=== PATIENT | female | born 1990 | race Caucasian/White ===

== ENCOUNTER 2016-12-17 17:53 | Emergency (ER) | payer MEDICAID ==
[~2016-12-17] VITALS: Ht 165.1 cm; Wt 68.0 kg
[~2016-12-17 17:53] MED LIST: ADDE30TA PO; LO LTAB PO; MACR100C PO; ZOFR4TAB3 SL
[2016-12-17 17:55] VITALS: BP 124/79; PULSE 64; RESP 16; TEMP 98.8; O2SAT 100
[2016-12-17] MEDS ORDERED: ZOFR4TAB3 SL (18:11)
[2016-12-17] MEDS ORDERED: IBUP800T23 PO (18:11)
[2016-12-17] MEDS ORDERED: MAGICPED SWISH-SPIT (18:11)
--- NOTE | 2016-12-17 18:12 | PD ---
HPI Chief Complaint: Oral / Dental Pain or Problem Time Seen by Provider: 18:10 Travel History International Travel<30 days: No Contact w/Intl Traveler<30days: No Traveled to known affect area: No History of Present Illness HPI 26-year-old female presents emergency Department with complaint of right lower tooth pain 1 week. Has been on amoxicillin for the last week and has a dentist appointment tomorrow. Pain is excruciating. She denies fever. Denies facial erythema, edema. Reports vomiting. Says her tooth is cracked and has a hole in it. Has been taking Tylenol threes and ibuprofen with no relief of pain. Patient reports taking 12 200 mg ibuprofens throughout the day today. Has tried an ice pack to the side of her face and says it makes it worse. Allergies to Percocet. Has no other medical complaints. No other modifying factors or associated signs and symptoms. PFSH Past Medical History Anemia: Yes Asthma: No Heart Rhythm Problems: No Cancer: No Cardiovascular Problems: No High Cholesterol: No Chest Pain: No Congestive Heart Failure: No COPD: No Cerebrovascular Accident: No Diminished Hearing: No Endocrine: No Genitourinary: Yes (PROTEINURIA ON 01/2016) Headaches: Yes Immune Disorder: No Kidney Stones: No Musculoskeletal: No Psychiatric: No Reproductive: No Respiratory: No Immunizations Current: Yes Migraines: No Renal Failure: No Seizures: Yes (AT AGE 3) Sleep Apnea: No ?: Not LMP: 12/01/16 : 2 Para: 2 Miscarriage: 0 : 0 Past Surgical History Other Surgery: No Social History Alcohol Use: Yes (OCCASSIONALLY) Tobacco Use: No Substance Use: No Allergies-Medications (Allergen,Severity, Reaction): Coded Allergies: Percocet (Verified Allergy, Unknown, VOMITING AND HIVES, 02/08/16) Reported Meds & Prescriptions Reported Meds & Active Scripts Active Ibuprofen 800 Mg Tab 800 Mg PO Q6HR PRN Magic Mouthwash Pediatric/Adult Liq (Lidocaine/Diphenhydr/Alum/Mg/Simeth) 60 Ml Susp 5 Ml SWISH-SPIT Q3HR PRN Each 5mL contains: Diphenydramine 4.5mg, Viscous Lidocaine 2% 10mg, Maalox Advanced Regular Strength 2.7ml Zofran Odt (Ondansetron Odt) 4 Mg Tab 4 Mg SL Q8HR PRN Zofran ODT (Ondansetron HCl) 4 Mg Tab 4 Mg SL Q6H PRN Macrobid (Nitrofurantoin Macrocrystals) 100 Mg Cap 100 Mg PO BID Lo Loestrin Fe (Norethindrone Acetate-Ethinyl) Tab 1 Tab PO DAILY Reported Adderall 30 mg (Amphetamine/Dextroamphetamine) 30 Mg Tab 1 Tab PO BID Review of Systems Except as stated in HPI: all other systems reviewed are Neg Physical Exam Narrative GENERAL: Well-nourished, well-developed female patient, in no acute distress; afebrile, nontoxic-appearing SKIN: Warm and dry. HEAD: Atraumatic. Normocephalic. No facial edema, erythema, tenderness on palpation. No lymphadenopathy. EYES: Pupils equal and round. No scleral icterus. No injection or drainage. ENT: Mucosa pink and moist. Airway patent. MOUTH: Mucous membranes moist, no lesions, tongue and gums appear normal. Right lower wisdom tooth with large dental cavity and decay; the tenderness on palpation; surrounding gingiva is mildly edematous and without erythema, drainage medical no obvious abscess noted. NECK: Trachea midline. No lymphadenopathy. CARDIOVASCULAR: Regular rate. RESPIRATORY: No accessory muscle use. GASTROINTESTINAL: Flat. MUSCULOSKELETAL: No obvious deformities. No clubbing. No cyanosis. No edema. NEUROLOGICAL: Awake and alert. Oriented 3. No obvious cranial nerve deficits. Motor grossly within normal limits. Normal speech. PSYCHIATRIC: Appropriate mood and affect; insight and judgment normal. Data Data Last Documented VS Vital Signs Date Time Temp Pulse Resp B/P Pulse Ox O2 Delivery O2 Flow Rate FiO2 12/17/16 17:55 98.8 64 16 124/79 100 Room Air Orders Ketorolac Inj (Toradol Inj) (12/17/16 18:15) MDM Medical Decision Making Medical Screen Exam Complete: Yes Emergency Medical Condition: Yes Medical Record Reviewed: Yes Differential Diagnosis Dentalgia, dental abscess, root exposure, dental trauma, infected dental cavity Narrative Course 26-year-old female with dentalgia to the right lower wisdom tooth. She has a follow-up appointment with the dentist tomorrow. She's been taking amoxicillin for 1 week. Denies fever. Reports vomiting. Patient has no facial edema or erythema. She is afebrile and nontoxic-appearing. Instructed patient to continue amoxicillin as prescribed. I did offer to change the antibiotic and she declined at this time. Patient has Tylenol 3's at home for pain. Toradol administered in the ER. Magic mouthwash, ibuprofen, Zofran prescribed for home. Patient verbalizes understanding and agreement with treatment plan. Patient is medically cleared and stable for discharge. Discussed reasons to return to the emergency department. Instructed patient to follow up with primary care provider. Patient agrees with treatment plan. The patients vital signs are stable and the patient is stable for outpatient follow-up and treatment. Patient discharged home, stable and in no acute distress. Diagnosis Primary Impression: Dentalgia Referrals: Dentist Primary Care Physician Patient Instructions: Dental Abscess (ED), Dental Caries (ED), General Instructions, Toothache (ED) Departure Forms: Tests/Procedures, Work Release Enter return to work date: December 19, 2016 Additional Instructions: Complete full course of antibiotics Ibuprofen as directed and as needed to reduce pain and inflammation Use Magic mouthwash rinse as directed and as needed to decrease pain Warm compresses to the affected area Follow-up with dentist Follow-up with primary care provider Return to emergency department immediately with worsening of symptoms Med/Other Pt SpecificInfo: Prescription(s) given Scripts Ibuprofen 800 Mg Qid293 Mg PO Q6HR PRN (PAIN) #30 TAB Ref 0 Prov:Jojo Macario 12/17/16 Kcczktznlidtesr-Npesqwmhb-Ste-Alum-Simeth Liq (Magic Mouthwash Pediatric/Adult Liq)60 Ml Susp5 Ml SWISH-SPIT Q3HR PRN (PAIN SCALE 1 TO 10) #60 ML Ref 0 Each 5mL contains: Diphenydramine 4.5mg, Viscous Lidocaine 2% 10mg, Maalox Advanced Regular Strength 2.7ml Prov:Jojo Macario 12/17/16 Ondansetron Odt (Zofran Odt)4 Mg Tab4 Mg SL Q8HR PRN (Nausea/Vomiting) #10 TAB Ref 0 Prov:Jojo Macario 12/17/16 Disposition: 01 DISCHARGE HOME Condition: Stable Jojo Macario December 17, 2016 18:12 Jojo Macario December 17, 2016 18:12
[2016-12-17] MEDS ORDERED: KETOROLAC TROMETHAMINE 60 MG/2 ML (IM) VIAL IM ONE (18:15)
== END 2016-12-17 18:59 | disposition home or self-care (01) ==
LOC: NEPK 17:53
DX: K08.89 Other specified disorders of teeth and supporting structures (principal); R11.10 Vomiting, unspecified; Z86.2 Personal history of diseases of the blood and blood-forming organs and certain disorders involving the immune mechanism; Z87.448 Personal history of other diseases of urinary system
CPT/HCPCS: 99282

== ENCOUNTER 2017-08-10 16:55 | Emergency (ER) | payer BC, MEDICAID ==
[~2017-08-10 16:55] MED LIST changes: +IBUP1TAB7 PO; +MAGICPED SWISH-SPIT
[2017-08-10 16:56] VITALS: BP 116/67; PULSE 65; RESP 14; TEMP 98.6; O2SAT 100
[2017-08-10 19:13] LABS: BILIRUBIN, URINE NEG (NEG); BLOOD, URINE MOD (NEG); GLUCOSE,URINE NEG (NEG); KETONE, URINE NEG (NEG); NITRITE,URINE NEG (NEG); PH, URINE 7.5 (5.0-8.5); SQUAMOUS EPITHELIAL CELL URINE <1 /hpf (0-5); URINE COLOR LIGHT-YELLOW (YELLW/STRAW); URINE LEUKOCYTE ESTERASE LARGE (NEG)
[2017-08-10 19:15] LABS: AUTOMATED NEUTROPHIL # 4.1 TH/MM3 (1.8-7.7); BASOPHIL # 0.1 TH/MM3 (0-0.2); BASOPHIL % 0.8 % (0.0-2.0); EOSINOPHIL # 0.1 TH/MM3 (0-0.4); EOSINOPHIL % 1.1 % (0.0-4.0); HEMATOCRIT 31.4 % (35.0-46.0); HEMOGLOBIN 9.9 GM/DL (11.6-15.3); LYMPH % 25.4 % (9.0-44.0); LYMPHOCYTE # 1.5 TH/MM3 (1.0-4.8); MEAN CELL VOLUME 68.2 FL (80.0-100.0); MEAN CORPUSCULAR HEMOGLOBIN 21.4 PG (27.0-34.0); MEAN CORPUSCULAR HGB CONC 31.4 % (32.0-36.0); MEAN PLATELET VOLUME 9.6 FL (7.0-11.0); MONO % 5.4 % (0.0-8.0); MONOCYTE # 0.3 TH/MM3 (0-0.9); NEUT % 67.3 % (16.0-70.0); PLATELET COUNT 245 TH/MM3 (150-450); RED BLOOD COUNT 4.61 MIL/MM3 (4.00-5.30); RED CELL DISTRIBUTION WIDTH 17.5 % (11.6-17.2)
[2017-08-10 19:57] LABS: ALBUMIN 3.8 GM/DL (3.4-5.0); AST (GOT) 20 U/L (15-37); BICARBONATE 27.5 MEQ/L (21.0-32.0); BLOOD UREA NITROGEN 5 MG/DL (7-18); CALCIUM 9.1 MG/DL (8.5-10.1); CHLORIDE 107 MEQ/L (98-107); CREATININE 0.73 MG/DL (0.50-1.00); GLOMERULAR FILTRATION RATE 96 ML/MIN (>89); GLUCOSE,RANDOM 93 MG/DL (74-106); LIPASE 143 U/L (73-393); SODIUM (NA) 141 MEQ/L (136-145)
[2017-08-10 19:59] LABS: ALT (GPT) 18 U/L (10-53)
[2017-08-10 20:00] LABS: ALKALINE PHOSPHATASE 63 U/L (45-117); TOTAL BILIRUBIN ADULT 0.2 MG/DL (0.2-1.0); TOTAL PROTEIN 7.9 GM/DL (6.4-8.2)
--- NOTE | 2017-08-10 22:41 | PD ---
HPI Chief Complaint: Abdominal Pain Time Seen by Provider: 21:55 Travel History International Travel<30 days: No Contact w/Intl Traveler<30days: No Traveled to known affect area: No History of Present Illness HPI 27-year-old female here for evaluation of left lower quadrant abdominal pain, dysuria, vaginal discharge. Symptoms have been going on for last 2 days, and the patient describes the pain as sharp, intermittent, worse with urinating, moderate. The patient reports similar symptoms in the past and believes she may have a UTI. She denies history of abdominal surgeries. She is currently on her menstrual period. She has had chlamydia in the past, however she is sexually active with one partner whom she is to an believes has been in a monogamous relationship for the last 2 years. No fevers or chills. No vomiting or diarrhea. PFSH Past Medical History Anemia: Yes Asthma: No Heart Rhythm Problems: No Cancer: No Cardiovascular Problems: No High Cholesterol: No Chest Pain: No Congestive Heart Failure: No COPD: No Cerebrovascular Accident: No Diminished Hearing: No Endocrine: No Genitourinary: Yes (PROTEINURIA ON 01/2016) Headaches: Yes Immune Disorder: No Kidney Stones: No Musculoskeletal: No Psychiatric: No Reproductive: No Respiratory: No Immunizations Current: Yes Migraines: No Renal Failure: No Seizures: Yes (AT AGE 3) Sleep Apnea: No ?: Not LMP: 08/09/17 : 2 Para: 2 Miscarriage: 0 : 0 Past Surgical History Other Surgery: No Social History Alcohol Use: Yes (OCCASSIONALLY) Tobacco Use: No Substance Use: No Allergies-Medications (Allergen,Severity, Reaction): Coded Allergies: acetaminophen (Unverified Allergy, Unknown, VOMITING AND HIVES, 03/17/17) oxycodone (Unverified Allergy, Unknown, VOMITING AND HIVES, 03/17/17) Reported Meds & Prescriptions Reported Meds & Active Scripts Active Ibuprofen 800 Mg Tab 800 Mg PO Q6HR PRN Magic Mouthwash Pediatric/Adult Liq (Lidocaine/Diphenhydr/Alum/Mg/Simeth) 60 Ml Susp 5 Ml SWISH-SPIT Q3HR PRN Each 5mL contains: Diphenydramine 4.5mg, Viscous Lidocaine 2% 10mg, Maalox Advanced Regular Strength 2.7ml Zofran Odt (Ondansetron Odt) 4 Mg Tab 4 Mg SL Q8HR PRN Zofran ODT (Ondansetron HCl) 4 Mg Tab 4 Mg SL Q6H PRN Macrobid (Nitrofurantoin Macrocrystals) 100 Mg Cap 100 Mg PO BID Lo Loestrin Fe (Norethindrone Acetate-Ethinyl) Tab 1 Tab PO DAILY Reported Adderall 30 mg (Amphetamine/Dextroamphetamine) 30 Mg Tab 1 Tab PO BID Review of Systems Except as stated in HPI: all other systems reviewed are Neg Physical Exam Narrative GENERAL: Well-developed, well-nourished, comfortable, no apparent distress. SKIN: Focused skin assessment warm/dry. No rash. HEAD: Atraumatic. Normocephalic. EYES: Pupils equal and round. No scleral icterus. No injection or drainage. ENT: Mucous membranes pink and moist. CARDIOVASCULAR: Regular rate and rhythm. No murmur appreciated. RESPIRATORY: No accessory muscle use. Clear to auscultation. Breath sounds equal bilaterally. GASTROINTESTINAL: Abdomen soft, nondistended. Moderate left lower quadrant tenderness without peritoneal signs. Mild suprapubic and right lower quadrant tenderness without peritoneal signs. The rest of abdomen is soft and nontender. Normal bowel sounds. CHIEF MEDICAL PHYSICIST: Exam performed in the presence of a female nurse. Normal external genitalia. Moderate amount of clear/grayish vaginal discharge. Cervix appears normal. No CMT. No adnexal masses or tenderness. MUSCULOSKELETAL: No obvious deformities. No clubbing. No cyanosis. No edema. NEUROLOGICAL: Awake and alert. No obvious cranial nerve deficits. Motor grossly within normal limits. Normal speech. PSYCHIATRIC: Appropriate mood and affect; insight and judgment normal. Data Data Last Documented VS Vital Signs Date Time Temp Pulse Resp B/P (MAP) Pulse Ox O2 Delivery O2 Flow Rate FiO2 08/10/17 16:56 98.6 65 14 116/67 (83) 100 Orders Orders Complete Blood Count With Diff (08/10/17 17:24) Comprehensive Metabolic Panel (08/10/17 17:24) Urinalysis - C+S If Indicated (08/10/17 17:24) Lipase (08/10/17 17:24) Ed Urine Pregnancytest Poc (08/10/17 21:55) Gc And Chlamydia Pcr (08/10/17 21:59) Wet Prep Profile (08/10/17 21:59) Metronidazole (Flagyl) (08/10/17 23:15) Azithromycin Powd Pack (Zithromax Powd P (08/10/17 23:15) Ceftriaxone Inj (Rocephin Inj) (08/10/17 23:15) Lidocaine 1% Inj (50 Ml) (Xylocaine 1% I (08/10/17 23:15) Ibuprofen (Motrin) (08/10/17 23:15) Labs Laboratory Tests Test 08/10/17 18:40 08/10/17 22:18 White Blood Count 6.0 TH/MM3 Red Blood Count 4.61 MIL/MM3 Hemoglobin 9.9 GM/DL Hematocrit 31.4 % Mean Corpuscular Volume 68.2 FL Mean Corpuscular Hemoglobin 21.4 PG Mean Corpuscular Hemoglobin Concent 31.4 % Red Cell Distribution Width 17.5 % Platelet Count 245 TH/MM3 Mean Platelet Volume 9.6 FL Neutrophils (%) (Auto) 67.3 % Lymphocytes (%) (Auto) 25.4 % Monocytes (%) (Auto) 5.4 % Eosinophils (%) (Auto) 1.1 % Basophils (%) (Auto) 0.8 % Neutrophils # (Auto) 4.1 TH/MM3 Lymphocytes # (Auto) 1.5 TH/MM3 Monocytes # (Auto) 0.3 TH/MM3 Eosinophils # (Auto) 0.1 TH/MM3 Basophils # (Auto) 0.1 TH/MM3 CBC Comment DIFF FINAL Differential Comment Urine Color LIGHT-YELLOW Urine Turbidity CLEAR Urine pH 7.5 Urine Specific [place] 1.003 Urine Protein NEG mg/dL Urine Glucose (UA) NEG mg/dL Urine Ketones NEG mg/dL Urine Occult Blood MOD Urine Nitrite NEG Urine Bilirubin NEG Urine Urobilinogen LESS THAN 2.0 MG/DL Urine Leukocyte Esterase LARGE Urine RBC LESS THAN 1 /hpf Urine WBC 7 /hpf Urine Squamous Epithelial Cells <1 /hpf Microscopic Urinalysis Comment CULT NOT INDICATED Blood Urea Nitrogen 5 MG/DL Creatinine 0.73 MG/DL Random Glucose 93 MG/DL Total Protein 7.9 GM/DL Albumin 3.8 GM/DL Calcium Level 9.1 MG/DL Alkaline Phosphatase 63 U/L Aspartate Amino Transf (AST/SGOT) 20 U/L Alanine Aminotransferase (ALT/SGPT) 18 U/L Total Bilirubin 0.2 MG/DL Sodium Level 141 MEQ/L Potassium Level 3.7 MEQ/L Chloride Level 107 MEQ/L Carbon Dioxide Level 27.5 MEQ/L Anion Gap 7 MEQ/L Estimat Glomerular Filtration Rate 96 ML/MIN Lipase 143 U/L Clue Cells (Wet Prep) NONE SEEN Vaginal Trichomonas (Wet Prep) PRESENT Vaginal Yeast (Wet Prep) NONE SEEN MDM Medical Decision Making Medical Screen Exam Complete: Yes Emergency Medical Condition: Yes Differential Diagnosis UTI, cystitis, ovarian cyst, ovarian torsion, PID, TOA, BV, Trichomonas, appendicitis, colitis, Narrative Course Vital signs show heart rate 65, blood pressure 116/67, pulse ox 100% on room air , tympanic temp of 98.6F. CBC: WBC 6, hemoglobin 9.9, hematocrit 31.4, platelets 245. CMP is unremarkable. Lipase is 143. UA: Moderate occult blood, large leukocyte esterase, 7 WBCs, negative nitrites. Wet prep: Positive for Trichomonas. Negative for yeast, negative for clue cells. Patient reports history of anemia and previous labs in our system show hemoglobin is low 7.4. She is currently on iron supplements daily. Patient was made aware of wet prep findings. She will be given 2 g of Flagyl and will be empirically treated for gonorrhea and chlamydia. She was advised to have her sexual partner tested and treated as well. I believe that her symptoms are from the Trichomonas vaginalis. There are no peritoneal signs on exam, and I do not believe that there is an acute intra-abdominal/surgical process. Patient was advised to follow-up with her SURGICAL ENDOSCOPIST physician this week. She was informed on when to return to the emergency department. She verbalizes understanding and agreement with plan. Diagnosis Primary Impression: Trichomonas vaginalis (TV) infection Referrals: Field Case Manager 3 days Additional Instructions: Follow-up with your dredge engineer this week. Return to the emergency department for worsening symptoms or any other concerns. Disposition: 01 DISCHARGE HOME Condition: Stable Herson Christine MD Aug 10, 2017 22:41
[2017-08-10] MEDS ORDERED: LIDOCAINE HCL 1% 50 ML VIAL IM ONE (23:15)
[2017-08-10] MEDS ORDERED: AZITHROMYCIN PWD FOR SUSP 1 GM PACKET PO ONE (23:15)
[2017-08-10] MEDS ORDERED: metroNIDAZOLE 500 MG TAB PO ONE (23:15)
[2017-08-10] MEDS ORDERED: IBUPROFEN 600 MG TAB PO ONE (23:15)
[2017-08-10] MEDS ORDERED: cefTRIAXone 250 MG VIAL IM ONE (23:15)
[2017-08-10] MEDS ORDERED: LIDOCAINE HCL 1% PF 5 ML AMPULE OTHER ONE (23:30)
--- NOTE | 2017-08-11 16:23 | EKG ---
Date Performed: 08/11/2017 Time Performed: 01:02:19 PTAGE: 27 years EKG: SINUS BRADYCARDIA POSSIBLE RIGHT VENTRICULAR CONDUCTION DELAY BORDERLINE ECG PREVIOUS TRACING : 08/20/2013 17.20 Voltage has increased since prior tracing. DOCTOR: Moses Camarena Interpretating Date/Time 08/11/2017 16:22:03
== END 2017-08-10 23:51 | disposition home or self-care (01) ==
LOC: NEPD 16:55
DX: A59.01 Trichomonal vulvovaginitis (principal); R00.1 Bradycardia, unspecified; D64.9 Anemia, unspecified; R56.9 Unspecified convulsions; Z79.899 Other long term (current) drug therapy; Z88.6 Allergy status to analgesic agent; Z88.5 Allergy status to narcotic agent
CPT/HCPCS: 80053; 81001; 83690; 84703; 85025; 87210; 87491; 87591; 96372; 99284; J0696; 93005

== ENCOUNTER 2017-10-31 05:39 | Emergency (ER) | payer MEDICAID, OTHER ==
[~2017-10-31] VITALS: Ht 165.1 cm; Wt 66.0 kg
[2017-10-31 05:41] VITALS: BP 121/79; PULSE 97; RESP 16; TEMP 99.1; O2SAT 100
--- NOTE | 2017-10-31 06:34 | PD ---
HPI Chief Complaint: Cold / Flu Symptoms Time Seen by Provider: 05:56 Travel History International Travel<30 days: No Contact w/Intl Traveler<30days: No Traveled to known affect area: No History of Present Illness HPI 27 years old female complains of low abdominal pain, low back pain, nausea vomiting, lightheadedness, vaginal spotting and fever. Patient states that she started having lower abdominal pain low back pain and vaginal spotting 4 days ago. Patient started running fever with intermittent nausea vomiting and lightheadedness for the past 2 days. Patient states that her last menstruation period was 30 days ago. Patient denies any dysuria or frequency. Patient is 4 para 2 AB 1. Patient's blood type O+. PFSH Past Medical History Anemia: Yes Asthma: No Heart Rhythm Problems: No Cancer: No Cardiovascular Problems: No High Cholesterol: No Chest Pain: No Congestive Heart Failure: No COPD: No Cerebrovascular Accident: No Diminished Hearing: No Endocrine: No Genitourinary: Yes (PROTEINURIA ON 01/2016) Headaches: Yes Immune Disorder: No Kidney Stones: No Musculoskeletal: No Psychiatric: No Reproductive: No Respiratory: No Immunizations Current: Yes Migraines: No Renal Failure: No Seizures: Yes (AT AGE 3) Sleep Apnea: No Tetanus Vaccination: < 5 Years Influenza Vaccination: No ?: Unknown LMP: 10/01/17 : 2 Para: 2 Miscarriage: 0 : 0 Past Surgical History Surgical History: No Previous Surgery Other Surgery: No Social History Alcohol Use: Yes (OCCASSIONALLY) Tobacco Use: No Substance Use: No Allergies-Medications (Allergen,Severity, Reaction): Coded Allergies: acetaminophen (Unverified Allergy, Unknown, VOMITING AND HIVES, 03/17/17) oxycodone (Unverified Allergy, Unknown, VOMITING AND HIVES, 03/17/17) Reported Meds & Prescriptions Reported Meds & Active Scripts Active Ibuprofen 800 Mg Tab 800 Mg PO Q6HR PRN Magic Mouthwash Pediatric/Adult Liq (Lidocaine/Diphenhydr/Alum/Mg/Simeth) 60 Ml Susp 5 Ml SWISH-SPIT Q3HR PRN Each 5mL contains: Diphenydramine 4.5mg, Viscous Lidocaine 2% 10mg, Maalox Advanced Regular Strength 2.7ml Zofran Odt (Ondansetron Odt) 4 Mg Tab 4 Mg SL Q8HR PRN Zofran ODT (Ondansetron HCl) 4 Mg Tab 4 Mg SL Q6H PRN Macrobid (Nitrofurantoin Macrocrystals) 100 Mg Cap 100 Mg PO BID Lo Loestrin Fe (Norethindrone Acetate-Ethinyl) Tab 1 Tab PO DAILY Reported Adderall 30 mg (Amphetamine/Dextroamphetamine) 30 Mg Tab 1 Tab PO BID Review of Systems General / Constitutional: No: Fever Eyes: No: Visual changes HENT: No: Headaches Cardiovascular: No: Chest Pain or Discomfort Respiratory: No: Shortness of Breath Gastrointestinal: Positive: Nausea, Vomiting, Abdominal Pain Genitourinary: Positive: Vaginal Bleeding, No: Dysuria Musculoskeletal: No: Pain Skin: No Rash Neurologic: No: Weakness Psychiatric: No: Depression Endocrine: No: Polydipsia Hematologic/Lymphatic: No: Easy Bruising Physical Exam Narrative GENERAL: Well-nourished, well-developed patient. SKIN: Focused skin assessment warm/dry. HEAD: Normocephalic. EYES: No scleral icterus. No injection or drainage. NECK: Supple, trachea midline. No JVD or lymphadenopathy. CARDIOVASCULAR: Regular rate and rhythm without murmurs, gallops, or rubs. RESPIRATORY: Breath sounds equal bilaterally. No accessory muscle use. GASTROINTESTINAL: Abdomen soft, non-tender, nondistended. MUSCULOSKELETAL: No cyanosis, or edema. BACK: Nontender without obvious deformity. No CVA tenderness. ARTIFICIAL TEETH INSPECTOR exam: No obvious blood in the vaginal vault. The cervix long thick and closed. Uterus not enlarged with mild tenderness on palpation. Moderate tenderness on palpation right adnexal area. No adnexal mass. Data Data Last Documented VS Vital Signs Date Time Temp Pulse Resp B/P (MAP) Pulse Ox O2 Delivery O2 Flow Rate FiO2 10/31/17 05:41 99.1 97 16 121/79 (93) 100 Orders Orders Beta Hcg (Quant/Titer) (10/31/17 06:27) Complete Blood Count With Diff (10/31/17 06:27) Basic Metabolic Panel (Bmp) (10/31/17 06:27) Us Pelvis (Ques Pr/Ect)W Trans (10/31/17 ) Urinalysis - C+S If Indicated (10/31/17 06:27) Iv Access Insert/Monitor (10/31/17 06:27) Ed Urine Pregnancytest Poc (10/31/17 06:27) [facility] Medical Decision Making Medical Screen Exam Complete: Yes Emergency Medical Condition: Yes Interpretation(s) Urine test positive. Differential Diagnosis Differential diagnosis including viral syndrome, threatened AB, incomplete AB, complete AB, ectopic . Narrative Course 27 years old female with nausea vomiting, fever, abdominal pain, low back pain, vaginal spotting. Renato Workman MD Oct 31, 2017 06:34
[2017-10-31 06:56] LABS: AUTOMATED NEUTROPHIL # 4.1 TH/MM3 (1.8-7.7); BASOPHIL % 0.7 % (0.0-2.0); EOSINOPHIL % 0.8 % (0.0-4.0); HEMATOCRIT 34.3 % (35.0-46.0); LYMPH % 17.4 % (9.0-44.0); MEAN CORPUSCULAR HEMOGLOBIN 21.7 PG (27.0-34.0); MEAN PLATELET VOLUME 9.1 FL (7.0-11.0); MONO % 9.8 % (0.0-8.0); MONOCYTE # 0.6 TH/MM3 (0-0.9); NEUT % 71.3 % (16.0-70.0); PLATELET COUNT 267 TH/MM3 (150-450); RED BLOOD COUNT 5.04 MIL/MM3 (4.00-5.30); RED CELL DISTRIBUTION WIDTH 18.1 % (11.6-17.2); WHITE BLOOD COUNT 5.7 TH/MM3 (4.0-11.0)
[2017-10-31 07:12] LABS: BACTERIA, URINE OCC /hpf; BILIRUBIN, URINE NEG (NEG); BLOOD, URINE NEG (NEG); GLUCOSE,URINE NEG (NEG); HYALINE CAST, URINE 6 /lpf (RARE); KETONE, URINE NEG (NEG); MUCUS URINE FEW /lpf (OCC); NITRITE,URINE NEG (NEG); SQUAMOUS EPITHELIAL CELL URINE 1 /hpf (0-5); URINE COLOR YELLOW (YELLW/STRAW); URINE LEUKOCYTE ESTERASE NEG (NEG)
[2017-10-31 07:28] LABS: BICARBONATE 27.4 MEQ/L (21.0-32.0); CALCIUM 9.2 MG/DL (8.5-10.1); CREATININE 0.83 MG/DL (0.50-1.00)
[2017-10-31 07:36] VITALS: BP 116/57; PULSE 100; RESP 18; O2SAT 98
--- NOTE | 2017-10-31 09:03 | RADRPT ---
EXAM DATE/TIME: 10/31/2017 07:48 [place] COMPARISON: No previous studies available for comparison. INDICATIONS : Pelvic pain and spotting with . LAB(S): Beta-hC MEDICAL HISTORY : . Seizures. SURGICAL HISTORY : None. ENCOUNTER: Initial ACUITY: 1 day PAIN SCORE: 3/10 LOCATION: Bilateral pelvis MEASUREMENTS: UTERUS: 8.5 x 4.0 x 5.4 cm ENDOMETRIAL STRIPE: 5 mm RIGHT OVARY: 4.7 x 2.1 x 4.0 cm LEFT OVARY: 3.4 x 1.6 x 1.9 cm FREE FLUID: No CROWN RUMP LENGTH: None = WKS DAYS FHR: None BPM FINDINGS: UTERUS: The myometrium has homogeneous echotexture without mass. RIGHT OVARY: Ovary contains no mass or significant cystic lesion. LEFT OVARY: Ovary contains no mass or significant cystic lesion. MISCELLANEOUS: No free fluid. CONCLUSION: 1. No intrauterine . This study does not exclude ectopic . 2. Small follicular cysts in both ovaries. Yash Spencer MD on October 31, 2017 at 8:59 Board Certified Radiologist. This report was verified electronically.
--- NOTE | 2017-10-31 09:16 | PD ---
Physical Exam Date Seen by Provider: Oct 31, 2017 Narrative I assume the care of this patient at 7 AM pending workup for possible ectopic . She came in with cold symptoms but also reported vaginal spotting. She was found to be . Her Rh is positive. She had an ultrasound and quantitative hCG pending. Data Data Last Documented VS Vital Signs Date Time Temp Pulse Resp B/P (MAP) Pulse Ox O2 Delivery O2 Flow Rate FiO2 10/31/17 07:36 100 18 116/57 (76) 98 Room Air 10/31/17 05:41 99.1 Orders Orders Beta Hcg (Quant/Titer) (10/31/17 06:27) Complete Blood Count With Diff (10/31/17 06:27) Basic Metabolic Panel (Bmp) (10/31/17 06:27) Us Pelvis (Ques Pr/Ect)W Trans (10/31/17 ) Urinalysis - C+S If Indicated (10/31/17 06:27) Iv Access Insert/Monitor (10/31/17 06:27) Ed Urine Pregnancytest Poc (10/31/17 06:27) Labs Laboratory Tests Test 10/31/17 06:30 White Blood Count 5.7 TH/MM3 Red Blood Count 5.04 MIL/MM3 Hemoglobin 11.0 GM/DL Hematocrit 34.3 % Mean Corpuscular Volume 68.0 FL Mean Corpuscular Hemoglobin 21.7 PG Mean Corpuscular Hemoglobin Concent 32.0 % Red Cell Distribution Width 18.1 % Platelet Count 267 TH/MM3 Mean Platelet Volume 9.1 FL Neutrophils (%) (Auto) 71.3 % Lymphocytes (%) (Auto) 17.4 % Monocytes (%) (Auto) 9.8 % Eosinophils (%) (Auto) 0.8 % Basophils (%) (Auto) 0.7 % Neutrophils # (Auto) 4.1 TH/MM3 Lymphocytes # (Auto) 1.0 TH/MM3 Monocytes # (Auto) 0.6 TH/MM3 Eosinophils # (Auto) 0.0 TH/MM3 Basophils # (Auto) 0.0 TH/MM3 CBC Comment DIFF FINAL Differential Comment Urine Color YELLOW Urine Turbidity CLEAR Urine pH 6.0 Urine Specific [place] 1.017 Urine Protein 100 mg/dL Urine Glucose (UA) NEG mg/dL Urine Ketones NEG mg/dL Urine Occult Blood NEG Urine Nitrite NEG Urine Bilirubin NEG Urine Urobilinogen LESS THAN 2.0 MG/DL Urine Leukocyte Esterase NEG Urine RBC LESS THAN 1 /hpf Urine WBC 2 /hpf Urine Squamous Epithelial Cells 1 /hpf Urine Bacteria OCC /hpf Urine Hyaline Casts 6 /lpf Urine Mucus FEW /lpf Microscopic Urinalysis Comment CULT NOT INDICATED Blood Urea Nitrogen 10 MG/DL Creatinine 0.83 MG/DL Random Glucose 117 MG/DL Calcium Level 9.2 MG/DL Sodium Level 140 MEQ/L Potassium Level 3.5 MEQ/L Chloride Level 105 MEQ/L Carbon Dioxide Level 27.4 MEQ/L Anion Gap 8 MEQ/L Estimat Glomerular Filtration Rate 83 ML/MIN Human Chorionic Gonadotropin, Quant 43 MIU/ML MDM Supervised Visit with JO: No Narrative Course Last Impressions Pelvis Ultrasound 10/31/17 0000 Signed Impressions: Service Date/Time: Tuesday, October 31, 2017 07:48 - CONCLUSION: 1. No intrauterine . This study does not exclude ectopic . 2. Small follicular cysts in both ovaries. Yash Spencer MD CBC & BMP Diagram 10/31/17 06:30 Calcium Level 9.2 Quantitative hCG is only 43. UA is negative for infection. The patient will be discharged home with instructions to follow-up with OB in 2 days for recheck. Diagnosis Primary Impression: Upper respiratory infection Qualified Codes: J06.9 - Acute upper respiratory infection, unspecified Additional Impression: Bleeding in early Additional Instruction: Follow-up for repeat quantitative hCG in 2 days. I recommend the use of a Neti Pot. You may use a nasal spray such as Afrin for up to 3 days as needed for nasal congestion. You may take an cerl-ath-rmgeosy antihistamine such as Zyrtec, Jasmine or Claritin as needed for runny secretions. You may take pseudoephedrine as needed for congestion. You will need to sign for this at the pharmacy. You may take plain Mucinex, 1200 mg twice a day as needed for thick secretions. You may take a cough syrup such as Delsym as needed for cough. Motrin as needed for fever and body aches. Throat lozenges/sprays as needed for sore throat. Warm salt water gargles for sore throat. Hot tea with lemon and honey also helps soothe a sore throat. Disposition: 01 DISCHARGE HOME Condition: Stable Radha Diaz MD Oct 31, 2017 09:16
[2017-10-31 09:38] VITALS: BP 119/68
== END 2017-10-31 09:39 | disposition home or self-care (01) ==
LOC: NEPC 05:39
DX: O99.511 Diseases of the respiratory system complicating pregnancy, first trimester (principal); J06.9 Acute upper respiratory infection, unspecified; O20.9 Hemorrhage in early pregnancy, unspecified
CPT/HCPCS: 76700; 76817; 80048; 81001; 84702; 84703; 85025; 99284